=== PATIENT | male | born 1940 | race Caucasian/White ===

== ENCOUNTER 2016-09-16 11:45 | Inpatient (IN) | payer MEDICARE, OTHER ==
[~2016-09-16] VITALS: Ht 172.7 cm; Wt 110.1 kg
[~2016-09-16 11:45] MED LIST: ALTACE DPS10 MG PO; ASA CHILDREN'S81 MG PO; ASPIRIN EC81 MG PO; COMBIGAN EYE DRO5 ML OU; COMBIGAN5 ML OU; COSOPT PLUS DPS10 ML OU; COUMADIN7.5 MG PO; DEXAMETHASONE4 MG PO; DIFLUCAN200 MG PO; HUMULIN 70100 UNIT/1 SQ; INDOCIN DPS PO; KLOR-CON M2020 ME1 PO; LANOXIN DPS0.125 MG PO; LASIX DPS80 MG PO; LASIX40 M1 PO; LATANOPROST2.5 ML OU; LEVAQUIN DPS500 MG PO; LIPITOR DPS40 MG PO; LIPITOR20 MG PO; LOPRESSOR DPS100 MG PO; LOPRESSOR50 MG PO; MELATONIN3 MG PO; MELATONIN5 MG PO; MYCOSTATIN PWD15 GM TP; NEURONTIN DPS300 MG PO; NITROSTAT0.4 MG PO; NITROSTAT0.4 MG SL; NORVASC10 MG PO; NORVASC5 MG PO; NOVOLIN 70100 UNITS/ SQ; PLAVIX75 MG PO; PRILOSEC DPS20 MG PO; PROTONIX20 MG PO; ROZEREM8 MG PO; SYNTHROID DPS0.15 MG PO; SYNTHROID150 MCG PO; THERA1 EACH PO; ULTRAM DPS50 MG PO; XALATAN2.5 ML OU; ZESTRIL DPS10 MG PO; ZOVIRAX400 MG PO; ZYVOX600 MG PO
[2016-09-21] MEDS ORDERED: COSOPT EYE DROP10 ML OU (10:10)
--- NOTE | 2016-09-27 12:49 | CO ---
ADMIT: 09/16/2016 RM/LOC: [facility] MR#: [id number] [id number] [place], [place] [address] [address] [address] [facility] [address] [place] [address] Consultation Report SEX: M AGE: 76 : 1940 DATE OF CONSULTATION: 09/14/2016 ATTENDING PHYSICIAN: Marko Torres CONSULTING PHYSICIAN: Matt Haq MD HISTORY OF PRESENT ILLNESS: This 76-year-old male is admitted to the hospital for a transmetatarsal amputation of the left foot. The patient is a diabetic. He has had a chronically infected left foot with peripheral vascular insufficiency and has not responded well to antibiotics and usual treatment of his left foot. He has had weeks of therapy for this. He has been seeing Wound Care. He has seen a Director Clinical Information Services and in spite of this is not getting better. PREVIOUS MEDICAL HISTORY: Generally, his health has been poor. The previous problems include: 1. Chronic atrial fibrillation. 2. Hypertension. 3. Previous CVA. 4. Paroxysmal atrial fibrillation. 5. Hypothyroidism. 6. Hypercholesterolemia. 7. Multiple myeloma. 8. Chronic cellulitis. 9. Vascular insufficiency of his lower extremity. PAST SURGICAL HISTORY: Includes: 1. Rotator cuff surgery. 2. Cataracts. ALLERGIES: NONE. FAMILY HISTORY: Mother of heart disease. There is also diabetes in the family. SOCIAL HISTORY: The patient has been living at home. He is a former smoker. REVIEW OF SYSTEMS: HEENT: The patient wears glasses. He has had a previous stroke. He has some minor hearing loss. CARDIORESPIRATORY: The patient had paroxysmal atrial fibrillation. He has had some mild congestive heart failure. He has had longstanding hypertension. He has had no previous myocardial infarction or pacemaker. He has had no deep vein thrombophlebitis. He has had some ischemic heart disease, treated medically. He has had a heart catheterization in the past. GENITOURINARY: The patient has a history of GERD, but no nausea, vomiting, constipation, bloody stools, or diarrhea. : No hematuria, dysuria, renal insufficiency, or renal calculi. METABOLIC/ENDOCRINE: There is a history of hypothyroidism. He also had diabetes mellitus. MUSCULOSKELETAL: The patient has a history of gout. The patient has a history ADMIT: 09/16/2016 RM/LOC: [facility] MR#: [id number] [address] [facility] [address] [place], [place] [address] [facility] [address] [facility] [address] [place] [address] Consultation Report SEX: M AGE: 76 : 1940 of osteoarthritis. The patient also has a history of multiple myeloma. METABOLIC/ENDOCRINE: He has had insulin-dependent type 2 diabetes mellitus. PHYSICAL EXAMINATION: VITAL SIGNS: Blood pressure is 130/80, temperature 99.4 degrees, pulse 100 and irregularly irregular, respirations 18. Weight 249 pounds, BMI of 37.3. GENERAL: The patient is an overweight male, who is alert, cooperative, and oriented x3. HEENT: Head - normocephalic without exostoses. REY. Throat within normal limits. NECK: Neck veins not distended. Thyroid not enlarged. CHEST: Clear to percussion and auscultation. HEART: Irregular rate and rhythm with tachycardia present. LUNGS: Diminished breath sounds bilaterally. No wheezes are heard. ABDOMEN: Protuberant. The liver is not enlarged. Spleen is not palpable. No abnormal masses are present. GENITALIA: Normal. EXTREMITIES: He has diminished pulses in both legs. There is chronic cellulitis in his left foot and ankle with diminished pulses. There is no cyanosis or edema. ASSESSMENT: Chronic venous insufficiency, right leg with ischemic heart disease and peripheral vascular disease with makeup. EDIT: 09/16/2016 0503 njv Matt Haq MD/ sebastian JOB #: [id number] CC: Marko Torres, Attending Physician UNKNOWN, Family Physician
--- NOTE | 2016-10-12 13:18 | OR ---
ADMIT: 09/16/2016 RM/LOC: [address] [facility] MR#: [id number] ACC#: [id number] [id number] [place], [place] [address] [address] [facility] [address] [place] [address] Operative/Delivery Room Report SEX: M AGE: 76 : 1940 SURGERY DATE: 09/16/2016 SURGEON: Marko Torres DPM LIVESTOCK SHOWMAN: None. PREOPERATIVE DIAGNOSES: 1. Osteomyelitis, left foot. 2. Peripheral vascular disease, left foot. 3. Diabetes mellitus type 2. 4. Nonhealing ulceration. POSTOPERATIVE DIAGNOSES: 1. Osteomyelitis, left foot. 2. Peripheral vascular disease, left foot. 3. Diabetes mellitus type 2. 4. Nonhealing ulceration. PROCEDURE: Left foot transmetatarsal amputation. PATHOLOGY: Soft tissue and bone sent for pathological analysis. ANESTHESIA: Monitored anesthesia care with local anesthetic. HEMOSTASIS: None. ESTIMATED BLOOD LOSS: 50 mL. MATERIALS USED: None. INJECTABLES: 40 mL of 0.5% Marcaine plain injected intraoperatively as well as preoperatively. COMPLICATIONS: None. INDICATIONS FOR PROCEDURE: The patient is a 76-year-old male patient, who was presented to my office with a chief complaint of a nonhealing ulceration to the left foot as well as osteomyelitis, and he has recently undergone revascularization, which would allow for healing of his necrotic wounds or the procedure that was performed. He has elected to have the procedure performed after further conservative and surgical measures were discussed with the patient in great detail. All risks, complications, and benefits of the procedure have been explained to the patient. He has shown that he understands these by signing the consent form and it has been placed in the chart. His n.p.o. status has been confirmed. He has been medically cleared for surgery, and no outcomes or guarantees have been given or implied. PROCEDURE IN DETAIL: Under mild sedation, the patient was brought to the operating room, placed in the operating table in supine position. The foot ADMIT: 09/16/2016 RM/LOC: [address] [facility] MR#: [id number] [id number] [place], [place] [address] [place], [address] [place] [address] Operative/Delivery Room Report SEX: M AGE: 76 : 1940 has been scrubbed, prepped, and draped in the usual aseptic manner. Attention was then directed to the left lower extremity in a fishmouth-type incision throughout the whole forefoot is made through skin and subcutaneous tissue with care being taken to preserve and retract all vital neurovascular structures with any bleeders being cauterized and ligated as deemed necessary. The incision was deepened appropriately. Appropriate dissection was performed down to the metatarsals where sagittal saw has been used to perform the amputation, and the distal toes and metatarsals are freed from any soft tissue attachments. The forefoot was then passed from the operative field and sent for pathological analysis. The area was inspected and any bleeders are cauterized and ligated as deemed necessary. The area is flushed with copious amounts of normal sterile saline, and the incision was closed using 2-0 nylon in a simple interrupted suture technique. The area was dressed with Adaptic, 4 x 4 gauze, ABDs, Kerlix, and an Romeo bandage. The patient tolerated the procedure and anesthesia well, was transferred from the OR to the recovery room with vital signs stable and neurovascular status intact to the left lower extremity. Following a brief period of postoperative monitoring, the patient will be admitted to the floor for appropriate monitoring. All written and verbal instructions were placed in the chart and given to the patient and his family members in detail. Marko Torres DPM/ sebastian JOB #: [id number] CC: Marko Torres, Attending Physician Matt Haq, Family Physician
--- NOTE | 2016-10-29 17:27 | DS ---
ADMIT: 09/16/2016 RM/LOC: [address] [facility] MR#: [id number] [address] [address] [place] [address] General Discharge Summary SEX: M AGE: 76 : 1940 ADMISSION DATE: 09/16/2016 DISCHARGE DATE: 09/20/2016 The patient was admitted after a left transmetatarsal amputation on 09/16/2016. He is a 76-year-old male with multiple comorbidities who has recently undergone revascularization to the left lower extremity and had severely necrotic foot osteomyelitis. He had consented to a transmetatarsal amputation. The procedure was tolerated well with no issues. He was admitted to the floor for observation and further evaluation to ensure that he was stable prior to discharge. He underwent an unremarkable stay that was monitored appropriately. He was placed into a home at the end of his stay for appropriate postoperative care and instructions. He is to be nonweightbearing to the left lower extremity, keep the dressing in place and present to my office one week after discharge. Marko Torres DPM/ sebastian JOB #: [id number] CC: Marko Torres DPM, Attending Physician Matt Haq MD, Family Physician
[2017-02-23] MEDS ORDERED: FLOMAX DPS0.4 MG PO (14:14)
[2017-02-23] MEDS ORDERED: POTASSIUM CHLO20 ME2 PO (14:16)
[2017-02-23] MEDS ORDERED: CARTIA XT120 MG PO (14:17)
[2017-02-23] MEDS ORDERED: NITROSTAT0.4 MG SL (14:17)
[2017-02-23] MEDS ORDERED: ZESTRIL DPS10 MG PO (14:17)
[2017-02-23] MEDS ORDERED: DAILY MULTIPLE1 EAC1 PO (14:17)
[2017-02-23] MEDS ORDERED: ALPHAGAN-P5 ML OU (14:18)
== END 2016-09-20 14:20 | DRG 617 ==
LOC: 5MS 13:51 → WOR 13:51 → 5MS 16:35
PROVIDERS: ADMIT Podiatrist
PROC: 0Y6N0ZF Detachment at Left Foot, Partial 5th Ray, Open Approach (ICD-10-PCS; principal; 2016-09-16)
PROC: 0Y6N0ZD Detachment at Left Foot, Partial 4th Ray, Open Approach (ICD-10-PCS; principal; 2016-09-16)
PROC: 0Y6N0ZB Detachment at Left Foot, Partial 2nd Ray, Open Approach (ICD-10-PCS; principal; 2016-09-16)
PROC: 0Y6N0ZC Detachment at Left Foot, Partial 3rd Ray, Open Approach (ICD-10-PCS; principal; 2016-09-16)
PROC: 0Y6N0Z9 Detachment at Left Foot, Partial 1st Ray, Open Approach (ICD-10-PCS; principal; 2016-09-16)
DX: E11.69 Type 2 diabetes mellitus with other specified complication (principal); M86.9 Osteomyelitis, unspecified; C90.00 Multiple myeloma not having achieved remission; E11.51 Type 2 diabetes mellitus with diabetic peripheral angiopathy without gangrene; I11.0 Hypertensive heart disease with heart failure; I50.9 Heart failure, unspecified; I48.2 Chronic atrial fibrillation; L03.116 Cellulitis of left lower limb; L97.529 Non-pressure chronic ulcer of other part of left foot with unspecified severity; E11.621 Type 2 diabetes mellitus with foot ulcer; E78.5 Hyperlipidemia, unspecified; I25.10 Atherosclerotic heart disease of native coronary artery without angina pectoris; E78.00 Pure hypercholesterolemia, unspecified; M10.9 Gout, unspecified; K21.9 Gastro-esophageal reflux disease without esophagitis; E03.9 Hypothyroidism, unspecified; Z79.01 Long term (current) use of anticoagulants; Z86.73 Personal history of transient ischemic attack (TIA), and cerebral infarction without residual deficits; Z87.891 Personal history of nicotine dependence; Z79.4 Long term (current) use of insulin

== ENCOUNTER → 2016-11-17 | Outpatient (CLI) | payer OTHER, MEDICARE ==
[~2016-11-17] MED LIST changes: +ALPHAGAN-P5 ML OU; +CARTIA XT120 MG PO; +COSOPT EYE DROP10 ML OU; +DAILY MULTIPLE1 EAC1 PO; +FLOMAX DPS0.4 MG PO; +POTASSIUM CHLO20 ME2 PO
== END | disposition home or self-care (01) ==
LOC: RAD.S 14:08
DX: R05 Cough (principal); R06.2 Wheezing